=== PATIENT | female | born 1955 | race Caucasian/White ===

== ENCOUNTER 2023-08-28 13:29 | Outpatient (AMB) | payer OTHER, SELFPAY ==
--- NOTE | 2023-08-28 13:33 | A.OFFVIS_ITS ---
Intake Vital Signs 08/28/23 13:35 Height 4 ft 9.5 in Weight 110 lb BMI 23.4 BP 132/72 Blood Pressure Location Lt brachial Position Sitting Pulse 55 Intake Visit Reasons: Colonoscopy Screening Intake Note: Patient new consult for 3 rd pre colonoscopy screening. Patient denies any GI issues. Non Destructive Testing Specialist Required: No Accompanied by: Self / Same As Patient Allergies No Known Allergies Allergy (Verified 08/28/23 13:32) Medication List - Last Reconciled 08/28/23 by Bobbi Ledesma PA-C alendronate (Fosamax) 70 mg PO QWEEK amlodipine 5 mg PO DAILY cholecalciferol (vitamin D3) 50 mcg PO DAILY ketoconazole 2% 1 appl topical BID levothyroxine 75 mcg PO DAILY lorazepam 0.5 mg PO DAILY PRN HPI HPI Comments History of Present Illness Details A 68 y/o female due for 10 year screening-no GI concerns Appetite is good Bowels are normal- She has no cardiac or respiratory issues She has no nausea, vomiting, hematemesis, hematochezia fever chills PFSH Surgical History Hx of tonsillectomy Hx of partial thyroidectomy Family History Mother Stroke Melanoma Uterine cancer HTN (hypertension) Dementia Father HTN (hypertension) Dementia Maternal Grandmother Stroke Social History Household Members: Spouse Alcohol intake: current Alcohol intake frequency: a few times a week Patient Tobacco Use Status: Never used Tobacco Use of substances other than those prescribed or required for medical reasons: Yes Substance Use Type: Marijuana Review of Systems Const All systems reviewed & are unremarkable except as noted in HPI and below Card Denies chest pain and Denies dyspnea Resp Denies dyspnea GI Denies abdominal pain, Denies hematochezia, Denies change in bowel habits, Denies heartburn, Denies diarrhea, Denies nausea and Denies vomiting Psych Denies anxiety Physical Exam Vital Signs: Last Vital Signs Pulse 55 08/28/23 13:35 BP 132/72 08/28/23 13:35 BMI result Body Mass Index 23.4 Const General: cooperative, healthy appearing, comfortable and no acute distress Orientation/consciousness: patient oriented x3 Limitations: no limitations Eyes Sclerae: sclerae normal Resp Effort & Inspection: normal respiratory effort and able to speak in complete sentences Auscultation: clear to auscultation bilaterally, no rales, no rhonchi and no wheezes Cardio Rate: regular rate Rhythm: regular rhythm Heart sounds: S1 normal heart sound present and S2 normal heart sound present GI Palpation (GI): Soft to palpation and nontender Auscultation: normal bowel sounds Skin General skin exam: no rashes or lesions noted Neuro General: patient oriented x3 Extrem General: Yes full ROM Psych Appearance: grossly normal and well kempt Mental Status: mental status grossly normal Speech and movement: Normal speech and movement present Affect: normal affect Attitude: cooperative Thought process: Normal thought process present Thought content: Normal thought content present Insight: Good insight present (Psych) Judgement: Good judgement present (Psych) Assessment & Plan Assessment & Plan (1) Encounter for screening colonoscopy: Comment: A very pleasant, no GI or general complaints No family history GI cancers Code(s): Z12.11 - Encounter for screening for malignant neoplasm of colon Plan: Screening colonoscopy with Dr. Dubose per her request Plan Screening colonoscopy- [facility] DUBOSE-( [facility]) [employer] rowdy MiraLax Gatorade prep Orders: Orders Colonoscopy - GI Use Only 08/28/23 Z12.11 - Encounter for screening for malignant neoplasm of colon Medications: New bisacodyl (Dulcolax (bisacodyl)) Day before procedure, prep day Take 4 tablets by mouth upon awakening followed by large glass of water 20 mg (4 x 5 mg) PO ONCE 4 tabs 0RF colonoscopy prep 1 day Z12.11 - Encounter for screening for malignant neoplasm of colon polyethylene glycol 3350 (Miralax) Take as directed by mouth the day before your procedure. 238 grams PO ONCE PRN 238 grams 0RF laxative effect 1 day Patient Instructions: Very pleasant 68-year-old female referred for screening colonoscopy Discussed procedure, rare risks, need for escorted- MiraLax Gatorade prep, reviewed, literature given Courage to call with questions or concerns Appreciate the opportunity assist in the care this pleasant patient Coding Level of Care Code New Pt Level 3 (85788) Diagnoses Encounter for screening colonoscopy Z12.11 Time Spent (min) 30
[2023-08-28 13:35] VITALS: BP 132/72; PULSE 55; BMI 23.4
== END 2023-08-28 15:08 | disposition home or self-care (01) ==
PROVIDERS: PCP Internal Medicine; Visit Provider Physician Assistant
DX: Z01.818 Encounter for other preprocedural examination (principal); Z12.11 Encounter for screening for malignant neoplasm of colon
CPT/HCPCS: S0285

== ENCOUNTER → 2023-08-28 13:29 | Outpatient (BNVA) | payer OTHER, SELFPAY | PROVIDERS: PCP Internal Medicine; Visit Provider Physician Assistant ==

== ENCOUNTER 2024-01-30 07:17 | Day surgery (SDC) | payer MEDICARE, SELFPAY ==
[2024-01-28 14:32] VITALS: BMI 23.4
--- NOTE | 2024-01-29 08:43 | HO.ANESPROP2 ---
Documented by User: Clau Morrison NP 01/29/24 08:45 HPI - Anesthesia Eval Consult details Narrative: 68yo F for Colonoscopy PMFSH Active Problems Active Problems: All Active Problems Encounter for screening colonoscopy (Acute) Past Medical History Medical History Arthritis Hypothyroid HTN (hypertension) Family History Family History Mother Stroke Melanoma Uterine cancer HTN (hypertension) Dementia Father HTN (hypertension) Dementia Maternal Grandmother Stroke Surgical History Surgical History H/O colonoscopy Hx of tonsillectomy Hx of partial thyroidectomy Social History Social History Household Members: Spouse Alcohol intake: current Alcohol intake frequency: a few times a week Patient Tobacco Use Status: Never used Tobacco Use of substances other than those prescribed or required for medical reasons: Yes Substance Use Type: Marijuana Advance Directives: No Advance Directives Information Provided: Yes Advance Directives on File: No Meds Allergies Allergy/AdvReac Type Severity Reaction Status Date / Time No Known Allergies Allergy Verified 08/28/23 13:32 Home Medications ?Medication ?Instructions ?Recorded ?Confirmed ?Last Taken ?Type alendronate 70 mg tablet (Fosamax) 70 mg PO QWEEK 08/28/23 01/28/24 Unknown History amlodipine 5 mg tablet 5 mg PO DAILY 08/28/23 01/28/24 Unknown History cholecalciferol (vitamin D3) 50 50 mcg PO DAILY 08/28/23 01/28/24 Unknown History mcg (2,000 unit) capsule ketoconazole 2 % topical cream 1 appl topical BID 08/28/23 01/28/24 Unknown History levothyroxine 75 mcg capsule 75 mcg PO DAILY 08/28/23 01/28/24 Unknown History lorazepam 0.5 mg tablet 0.5 mg PO DAILY PRN Anxiety 08/28/23 01/28/24 Unknown History Exam Height,Weight and Vital Signs: Height 4 ft 9.5 in Weight 49.895 kg Assessment and Plan Assessment Anesthesia Assessment: Chart Reviewed Documented by User: Lucy Rutledge MD 01/30/24 07:48 PMFSH Past Medical History Medical History Arthritis Hypothyroid HTN (hypertension) Family History Family History Mother Stroke Melanoma Uterine cancer HTN (hypertension) Dementia Father HTN (hypertension) Dementia Maternal Grandmother Stroke Family history of problems with anesthesia: No Surgical History Surgical History H/O colonoscopy Hx of tonsillectomy Hx of partial thyroidectomy History of Problems with Anesthesia: No Social History Social History Household Members: Spouse Alcohol intake: current Alcohol intake frequency: a few times a week Patient Tobacco Use Status: Never used Tobacco Use of substances other than those prescribed or required for medical reasons: Yes Substance Use Type: Marijuana Advance Directives: No Advance Directives Information Provided: Yes Advance Directives on File: No Meds Allergies Allergy/AdvReac Type Severity Reaction Status Date / Time No Known Allergies Allergy Verified 08/28/23 13:32 Home Medications ?Medication ?Instructions ?Recorded ?Confirmed ?Last Taken ?Type alendronate 70 mg tablet (Fosamax) 70 mg PO QWEEK 08/28/23 01/28/24 Unknown History amlodipine 5 mg tablet 5 mg PO DAILY 08/28/23 01/28/24 Unknown History cholecalciferol (vitamin D3) 50 50 mcg PO DAILY 08/28/23 01/28/24 Unknown History mcg (2,000 unit) capsule ketoconazole 2 % topical cream 1 appl topical BID 08/28/23 01/28/24 Unknown History levothyroxine 75 mcg capsule 75 mcg PO DAILY 08/28/23 01/28/24 Unknown History lorazepam 0.5 mg tablet 0.5 mg PO DAILY PRN Anxiety 08/28/23 01/28/24 Unknown History Exam Airway Mallampati Class: II TM Dist: >3cm Heart: rrr Lungs: cta Assessment and Plan Assessment Anesthesia Assessment: Anesthesia Plan Discussed Final Anesthetic Review Family History of Problems with Anesthesia: No History of Problems with Anesthesia: No NPO: Yes ASA Class: II Final Preanesthetic Review: No Changes in Pt Med Stat, Meds/Allgs Chart Reviewed, Consent Obtained/Reviewed and Anes Risks/Benef Reviewed Patient Risk: Low Procedure Risk: Low Anesthetic Plan Anesthetic Plan: MAC: Disposition: Standard PACU
--- NOTE | 2024-01-30 06:30 | MHC.SHP ---
Pre-Procedural Eval Section A - 24 Hr Update-Section A only Date of Service: 01/30/24 Section B - Complete if H&P > 30 days Chief Complaint: Encounter for screening for malignant neoplasm of Relevant Family History (Specify if Yes): No Relevant Social History: None Present Medications: see Short Stay Collaborative assessment Medical History: Significant History (Arthritis Hypothyroid HTN (hypertension)) History of Previous Operations: Relevant previous surgery/procedure and date(s) ( H/O colonoscopy Hx of tonsillectomy Hx of partial thyroidectomy) Allergies: Allergies Allergy/AdvReac Type Severity Reaction Status Date / Time No Known Allergies Allergy Verified 08/28/23 13:32 Review of Systems Sugical H&P ROS: Negative: Constitution, Cardiovascular, Respiratory, Neurological, Psychiatric, Hem-Onc, Allergic/Immunologic, Gastrointestinal, Genitourinary, Musculoskeletal, Integumentary, Endocrine and Eyes/Ears/Nose/Throat Exam Surgical H&P Exam: Normal: HEENT, Normal: Heart, Normal: Lungs, Normal: Extremities, Normal: Abdomen, Normal: Skin and Normal: Neurological Plan Diagnosis/Plan: Unchanged I have reviewed the history and physical and performed a pertinent physical examination on my patient. No changes have occurred unless specified. Time Spent With Patient Time: Total time managing care of this patient today ____ minutes.
[2024-01-30 07:53] VITALS: BMI 24.7
[2024-01-30 07:56] VITALS: BP 156/79; PULSE 49; RESP 16; TEMP 36.6; O2SAT 99
--- NOTE | 2024-01-30 08:00 | HO.OPN-COLON ---
Colonoscopy Operative Note Operative Note Date of Service: 01/30/24 Narrative: Operative Information Procedure Description: Colonoscopy Indication: screening Anesthesia: MAC COLONOSCOPY Instrument: Olympus variable stiffness pediatric scope 190L Colonoscopy Monitoring: Vital signs and clinical assessment, continuous EKG monitoring, Pulse oximetry, Carbon Dioxide monitoring and blood pressure monitoring were done throughout the procedure. Colon withdrawal time was 11 minutes. Procedure: The patient was placed in the left lateral decubitis position and pre-procedure medications were administered. After a digital rectal examination of the ano-rectum, the video colonoscope was inserted into the rectum and advanced through the colon to the cecum/TI. The colonoscope was slowly withdrawn in a retrograde panoramic fashion and the colon mucosa was carefully examined including a retroflexed view of the rectum. Findings and interventions are described below. Procedure Difficulty: easy Findings: Terminal Ileum-normal Cecum:normal Right sided retroflexion- normal Ascending Colon: normal Transverse Colon - 4-5 mm sessile polyp removed with cold forceps Descending Colon:normal Sigmoid Colon: moderate diverticulosis Rectum: Retroflexion with small internal hemorrhoids seen, grade I Anorectum - normal Intervention: cold forceps Colon preparation: [place] Bowel Preparation Scale Right colon; 2 Transverse colon: 2 Left colon; 2 (0 = Unprepared colon segment with mucosa not seen due to solid stool that cannot be cleared. 1 = Portion of mucosa of the colon segment seen, but other areas of the colon segment not well seen due to staining, residual stool and/or opaque liquid. 2 = Minor amount of residual staining, small fragments of stool and/or opaque liquid, but mucosa of colon segment seen well. 3 = Entire mucosa of colon segment seen well with no residual staining, small fragments of stool or opaque liquid) Impression and Post Procedure Diagnosis: diverticulosis colon polyp internal hemorrhoids Plan: High fiber diet leaflet Avoid straining at stool, epsom salts and sitz bath, anusol supps or cream Repeat Colonoscopy in 5-7 years if adenomatous polyp, 10 yrs if non adenomatous or earlier if clinically indicated Above findings were reviewed with the patient and relevant handouts were provided if indicated.
[2024-01-30] MEDS: Lactated Ringers 1,000 ML 100 ML IVCONT (08:08)
[2024-01-30 08:40] VITALS: BP 107/62; PULSE 46; RESP 17; TEMP 36.3; O2SAT 99
[2024-01-30 08:55] VITALS: BP 93/72; PULSE 50; RESP 17; O2SAT 100
[2024-01-30 09:08] VITALS: BP 142/78; PULSE 45; RESP 16; TEMP 36.6; O2SAT 100
== END 2024-01-30 09:43 | disposition home or self-care (01) ==
PROVIDERS: PCP Nurse Practitioner Family; Visit Provider Internal Medicine Gastroenterology
PROC: 0DJD8ZZ Inspection of Lower Intestinal Tract, Via Natural or Artificial Opening Endoscopic (ICD-10-PCS; CPT 45378; principal; 2024-01-30 08:30)
DX: Z12.11 Encounter for screening for malignant neoplasm of colon (principal); D12.3 Benign neoplasm of transverse colon; K57.30 Diverticulosis of large intestine without perforation or abscess without bleeding; K64.0 First degree hemorrhoids
CPT/HCPCS: 45380; 88305; J2704

== ENCOUNTER → 2024-01-30 07:17 | Outpatient (BNV) | payer MEDICARE, SELFPAY | PROVIDERS: PCP Nurse Practitioner Family; Visit Provider Internal Medicine Gastroenterology | DX: Z12.11 Encounter for screening for malignant neoplasm of colon (principal); D12.3 Benign neoplasm of transverse colon; K57.30 Diverticulosis of large intestine without perforation or abscess without bleeding; K64.0 First degree hemorrhoids | CPT/HCPCS: 45380 ==